=== PATIENT | female | born 1995 | race Caucasian/White ===

== ENCOUNTER 2017-04-10 10:59 | Emergency (ER) | payer BC ==
--- NOTE | 2017-04-10 11:27 | EDM.PDOCBH ---
ED HPI GENERAL MEDICAL PROBLEM - General Chief Complaint: Behavioral/Psych Stated Complaint: DEPRESSION Time Seen by Provider: 04/10/17 11:15 Source of Information: Reports: Patient History Limitations: Reports: No Limitations - History of Present Illness INITIAL COMMENTS - FREE TEXT/NARRATIVE: 22 yo female was sent from her clinic to the ER for suicidal ideation/ depression and auditory hallucinations. Has not done anything to harm herself to date. Has been having these thoughts for some time now. Here with her mother. Admits to attempting to drown herself in a sink once in the past. Is on no psych meds now. 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) - Related Data Allergies Allergy/AdvReac Type Severity Reaction Status Date / Time No Known Allergies Allergy Verified 04/10/17 11:32 Home Meds: Home Meds Montelukast [Singulair] 5 mg PO DAILY 06/01/16 [History] FLUoxetine [PROzac] 20 mg PO DAILY #30 cap 04/10/17 [Rx] Past Medical History - Past Surgical History HEENT Surgical History: Reports: Tonsillectomy Social & Family History - Family History Family Medical History: Noncontributory - Tobacco Use Smoking Status *Q: Never Smoker - Caffeine Use Caffeine Use: Reports: None - Recreational Drug Use Recreational Drug Use: No ED ROS GENERAL - Review of Systems Review Of Systems: See Below Constitutional: Reports: No Symptoms HEENT: Reports: No Symptoms Respiratory: Reports: No Symptoms Cardiovascular: Reports: No Symptoms Endocrine: Reports: No Symptoms GI/Abdominal: Reports: No Symptoms : Reports: No Symptoms Musculoskeletal: Reports: No Symptoms Skin: Reports: No Symptoms Neurological: Reports: No Symptoms Psychiatric: Reports: Depression, Hallucinations (auditory), Suicidal Ideation ED EXAM, BEHAVIORAL HEALTH - Physical Exam Exam: See Below Exam Limited By: No Limitations General Appearance: Alert, WD/WN, No Apparent Distress Eye Exam: Bilateral Eye: Normal Inspection, PERRL Ears: Normal External Exam, Normal Canal, Hearing Grossly Normal, Normal TMs Nose: Normal Inspection, Normal Mucosa, No Blood Throat/Mouth: Normal Inspection, Normal Lips, Normal Teeth, Normal Oropharynx, Normal Voice, No Airway Compromise Head: Atraumatic, Normocephalic Neck: Normal Inspection, Supple Respiratory/Chest: No Respiratory Distress, Lungs Clear, Normal Breath Sounds, No Accessory Muscle Use Cardiovascular: Normal Peripheral Pulses, Regular Rate, Rhythm, No Edema GI/Abdominal: Normal Bowel Sounds, Soft, Non-Tender Back Exam: Normal Inspection. No: CVA Tenderness (R), CVA Tenderness (L) Extremities: Normal Inspection, Normal Range of Motion, Non-Tender, No Pedal Edema Neurological: Alert, Normal Mood/Affect, CN II-XII Intact, Normal Cognition, No Motor/Sensory Deficits, Oriented x 3 Psychiatric: Alert, Normal Affect, Normal Cognition, Normal Mood, Oriented Skin Exam: Warm, Dry, Intact, Normal color, No rash COURSE, BEHAVIORAL HEALTH COMP - Course Vital Signs: Last Vital Signs Temp 36.2 C 04/10/17 10:59 Pulse 72 04/10/17 12:55 Resp 16 04/10/17 12:55 BP 129/85 04/10/17 12:55 Pulse Ox 100 04/10/17 12:55 Orders, Labs, Meds: Active Orders 24 hr Category Date Time Status CULTURE URINE [RM] Stat Lab 04/10/17 12:49 Ordered Laboratory Tests 04/10/17 04/10/17 04/10/17 Range/Units 11:25 11:25 11:25 WBC 8.3 (4.5-12.0) X10-3/uL RBC 4.54 (3.23-5.20) x10(6)uL Hgb 13.8 (11.5-15.5) g/dL Hct 40.6 (30.0-51.3) % MCV 89.4 (80-96) fL MCH 30.4 (27.7-33.6) pg MCHC 34.0 (32.2-35.4) g/dL RDW 12.4 (11.5-15.5) % Plt Count 343 (125-369) X10(3)uL Sodium 136 (135-145) mmol/L Potassium 3.3 L (3.5-5.3) mmol/L Chloride 101 (100-110) mmol/L Carbon Dioxide 25 (23-29) mmol/L BUN 9 (5-20) mg/dL Creatinine 0.7 (0.6-1.3) mg/dL Est Cr Clr Drug Dosing TNP Estimated GFR (MDRD) > 60 (>60) BUN/Creatinine Ratio 12.9 (9-20) Glucose 150 H (80-116) mg/dL Calcium 9.1 (8.6-10.2) mg/dL TSH, Ultra Sensitive 2.04 (0.4-5.5) nlU/mL Urine Color (YELLOW) Urine Appearance (CLEAR) Urine pH (5.0-6.5) Ur Specific [place] (1.010-1.025) Urine Protein (NEGATIVE) mg/dL Urine Glucose (UA) (NEGATIVE) mg/dL Urine Ketones (NEGATIVE) mg/dL Urine Occult Blood (NEGATIVE) Urine Nitrite (NEGATIVE) Urine Bilirubin (NEGATIVE) Urine Urobilinogen (NEGATIVE) mg/dL Ur Leukocyte Esterase (NEGATIVE) Urine RBC (0) Urine WBC (0) Urine Bacteria (NS) Urine HCG, Qual (NEGATIVE) Urine Opiates Screen (NEGATIVE) Ur Oxycodone Screen (NEGATIVE) Ur Propoxyphene Screen (NEGATIVE) Acetaminophen (10-30) ug/mL Ur Barbituates Screen (NEGATIVE) Ur Tricyclics Screen (NEGATIVE) Ur Phencyclidine Scrn (NEGATIVE) Ur Amphetamine Screen (NEGATIVE) Urine MDMA Screen (NEGATIVE) U Benzodiazepines Scrn (NEGATIVE) U Cocaine Metab Screen (NEGATIVE) U Marijuana (THC) Screen (NEGATIVE) Ethyl Alcohol (<0.01) % 04/10/17 04/10/17 04/10/17 Range/Units 11:25 11:25 12:33 WBC (4.5-12.0) X10-3/uL RBC (3.23-5.20) x10(6)uL Hgb (11.5-15.5) g/dL Hct (30.0-51.3) % MCV (80-96) fL MCH (27.7-33.6) pg MCHC (32.2-35.4) g/dL RDW (11.5-15.5) % Plt Count (125-369) X10(3)uL Sodium (135-145) mmol/L Potassium (3.5-5.3) mmol/L Chloride (100-110) mmol/L Carbon Dioxide (23-29) mmol/L BUN (5-20) mg/dL Creatinine (0.6-1.3) mg/dL Est Cr Clr Drug Dosing Estimated GFR (MDRD) (>60) BUN/Creatinine Ratio (9-20) Glucose (80-116) mg/dL Calcium (8.6-10.2) mg/dL TSH, Ultra Sensitive (0.4-5.5) nlU/mL Urine Color (YELLOW) Urine Appearance (CLEAR) Urine pH (5.0-6.5) Ur Specific [place] (1.010-1.025) Urine Protein (NEGATIVE) mg/dL Urine Glucose (UA) (NEGATIVE) mg/dL Urine Ketones (NEGATIVE) mg/dL Urine Occult Blood (NEGATIVE) Urine Nitrite (NEGATIVE) Urine Bilirubin (NEGATIVE) Urine Urobilinogen (NEGATIVE) mg/dL Ur Leukocyte Esterase (NEGATIVE) Urine RBC (0) Urine WBC (0) Urine Bacteria (NS) Urine HCG, Qual (NEGATIVE) Urine Opiates Screen Negative (NEGATIVE) Ur Oxycodone Screen Negative (NEGATIVE) Ur Propoxyphene Screen Negative (NEGATIVE) Acetaminophen < 10 L (10-30) ug/mL Ur Barbituates Screen Negative (NEGATIVE) Ur Tricyclics Screen Negative (NEGATIVE) Ur Phencyclidine Scrn Negative (NEGATIVE) Ur Amphetamine Screen Negative (NEGATIVE) Urine MDMA Screen Negative (NEGATIVE) U Benzodiazepines Scrn Negative (NEGATIVE) U Cocaine Metab Screen Negative (NEGATIVE) U Marijuana (THC) Screen Negative (NEGATIVE) Ethyl Alcohol < 0.01 (<0.01) % 04/10/17 04/10/17 Range/Units 12:33 12:33 WBC (4.5-12.0) X10-3/uL RBC (3.23-5.20) x10(6)uL Hgb (11.5-15.5) g/dL Hct (30.0-51.3) % MCV (80-96) fL MCH (27.7-33.6) pg MCHC (32.2-35.4) g/dL RDW (11.5-15.5) % Plt Count (125-369) X10(3)uL Sodium (135-145) mmol/L Potassium (3.5-5.3) mmol/L Chloride (100-110) mmol/L Carbon Dioxide (23-29) mmol/L BUN (5-20) mg/dL Creatinine (0.6-1.3) mg/dL Est Cr Clr Drug Dosing Estimated GFR (MDRD) (>60) BUN/Creatinine Ratio (9-20) Glucose (80-116) mg/dL Calcium (8.6-10.2) mg/dL TSH, Ultra Sensitive (0.4-5.5) nlU/mL Urine Color Gregory (YELLOW) Urine Appearance Cloudy (CLEAR) Urine pH 6.0 (5.0-6.5) Ur Specific [place] 1.020 (1.010-1.025) Urine Protein Negative (NEGATIVE) mg/dL Urine Glucose (UA) Normal (NEGATIVE) mg/dL Urine Ketones 15 H (NEGATIVE) mg/dL Urine Occult Blood Large H (NEGATIVE) Urine Nitrite Negative (NEGATIVE) Urine Bilirubin Small H (NEGATIVE) Urine Urobilinogen 1 H (NEGATIVE) mg/dL Ur Leukocyte Esterase Moderate H (NEGATIVE) Urine RBC 5-10 (0) Urine WBC 5-10 (0) Urine Bacteria Moderate H (NS) Urine HCG, Qual Negative (NEGATIVE) Urine Opiates Screen (NEGATIVE) Ur Oxycodone Screen (NEGATIVE) Ur Propoxyphene Screen (NEGATIVE) Acetaminophen (10-30) ug/mL Ur Barbituates Screen (NEGATIVE) Ur Tricyclics Screen (NEGATIVE) Ur Phencyclidine Scrn (NEGATIVE) Ur Amphetamine Screen (NEGATIVE) Urine MDMA Screen (NEGATIVE) U Benzodiazepines Scrn (NEGATIVE) U Cocaine Metab Screen (NEGATIVE) U Marijuana (THC) Screen (NEGATIVE) Ethyl Alcohol (<0.01) % Medications Discontinued Medications Generic Name Dose Route Start Last Admin Trade Name Irene PRN Reason Stop Dose Admin Potassium Chloride 20 meq 04/10/17 11:58 04/10/17 12:05 Klor-Con 10 PO 04/10/17 11:59 20 meq ONETIME ONE Administration Departure - Departure Time of Disposition: 14:15 Disposition: Home, Self-Care 01 Condition: Fair Clinical Impression: Depressive disorder, Suicidal ideation - Discharge Information Prescriptions: FLUoxetine [PROzac] 20 mg PO DAILY #30 cap Referrals: Gagan Live MD [Primary Care Provider] - Forms: ED Department Discharge - My Orders Last 24 Hours: My Active Orders 04/10/17 12:49 CULTURE URINE [RM] Stat - Assessment/Plan Last 24 Hours: My Active Orders 04/10/17 12:49 CULTURE URINE [RM] Stat
[2017-04-10] MEDS ORDERED: Potassium Chloride 10 MEQ Tab.ER PO ONE (11:58)
[2017-04-10 12:55] VITALS: BP 129/85
== END 2017-04-10 14:25 | disposition home or self-care (01) ==
LOC: FB.ED 10:59
DX: F32.9 Major depressive disorder, single episode, unspecified (principal); R45.851 Suicidal ideations; Z79.899 Other long term (current) drug therapy; Z98.890 Other specified postprocedural states
CPT/HCPCS: 36415; 80048; 80305; 81001; 81025; 84443; 85027; 87086; 99284; A9270; G0480

== ENCOUNTER 2018-02-18 01:06 | Emergency (ER) | payer SELFPAY ==
[2018-02-18] MEDS ORDERED: [UNRECOGNIZED DRUG - OTHER] PO STA (01:09)
[2018-02-18] MEDS ORDERED: ACTIVATED CHARCOAL PO STA (01:09)
[2018-02-18] MEDS ORDERED: Lactated Ringers 1,000 ML IV ONE (01:11)
--- NOTE | 2018-02-18 01:28 | EDM.PDOCBH ---
<Young Mao G - Last Filed: 02/18/18 05:25> ED HPI GENERAL MEDICAL PROBLEM - General Chief Complaint: Behavioral/Psych Stated Complaint: overdose of Prozac Time Seen by Provider: 02/18/18 01:17 Source of Information: Reports: Patient, EMS, Old Records History Limitations: Reports: No Limitations - History of Present Illness INITIAL COMMENTS - FREE TEXT/NARRATIVE: 23 yo female ingested 25 tabs of 20 mg Prozac about midnight tonight. Mother found out and called police. EMS transported with patient awake and vitally stable. Has a pHx of depression and suicidal ideations. No other ingestions reported. Patient says she did this impulsively. Mother says the daughter has never attempted suicide in the past. Daughter reported the ingestion to her mother shortly after she had done it. 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) - Related Data Allergies Allergy/AdvReac Type Severity Reaction Status Date / Time No Known Allergies Allergy Verified 02/18/18 01:39 Home Meds: Home Meds Montelukast [Singulair] 5 mg PO DAILY 06/01/16 [History] FLUoxetine [PROzac] 20 mg PO DAILY #30 cap 04/10/17 [Rx] Past Medical History - Past Surgical History HEENT Surgical History: Reports: Tonsillectomy Social & Family History - Family History Family Medical History: Noncontributory - Caffeine Use Caffeine Use: Reports: None ED ROS GENERAL - Review of Systems Review Of Systems: See Below Constitutional: Reports: No Symptoms, Weight Gain Respiratory: Reports: No Symptoms Cardiovascular: Reports: No Symptoms GI/Abdominal: Reports: No Symptoms : Reports: No Symptoms Musculoskeletal: Reports: No Symptoms Skin: Reports: No Symptoms Neurological: Reports: No Symptoms Psychiatric: Reports: Depression ED EXAM, BEHAVIORAL HEALTH - Physical Exam Exam: See Below Exam Limited By: No Limitations General Appearance: Alert, WD/WN, No Apparent Distress Eye Exam: Bilateral Eye: EOMI, PERRL Ears: Normal External Exam, Normal Canal, Hearing Grossly Normal, Normal TMs Nose: Normal Inspection, Normal Mucosa, No Blood Throat/Mouth: Normal Inspection, Normal Lips, Normal Oropharynx, Normal Voice, No Airway Compromise Head: Atraumatic, Normocephalic Neck: Normal Inspection, Supple, Non-Tender Respiratory/Chest: No Respiratory Distress, Lungs Clear, Normal Breath Sounds, No Accessory Muscle Use Cardiovascular: Regular Rate, Rhythm, No Edema GI/Abdominal: Normal Bowel Sounds, Soft, Non-Tender Extremities: Normal Inspection, Normal Range of Motion, Non-Tender, No Pedal Edema Neurological: Alert, Normal Mood/Affect, CN II-XII Intact, Normal Cognition, No Motor/Sensory Deficits, Oriented x 3 Psychiatric: Alert, Normal Affect, Normal Cognition, Normal Mood, Oriented Skin Exam: Warm, Dry, Intact, Normal color, No rash COURSE, BEHAVIORAL HEALTH COMP - Course Vital Signs: Last Vital Signs Temp 36.6 C 02/18/18 04:30 Pulse 80 02/18/18 07:00 Resp 15 02/18/18 07:00 BP 114/81 02/18/18 07:00 Pulse Ox 99 02/18/18 07:00 Orders, Labs, Meds: Active Orders 24 hr Category Date Time Status DRUG SCREEN, URINE ALERE [URCHEM] Stat Lab 02/18/18 01:35 Ordered HCG QUALITATIVE,URINE [URCHEM] Stat Lab 02/18/18 01:35 Ordered Laboratory Tests 02/18/18 02/18/18 02/18/18 Range/Units 01:25 01:25 01:35 Sodium 137 (135-145) mmol/L Potassium 3.7 (3.5-5.3) mmol/L Chloride 102 (100-110) mmol/L Carbon Dioxide 28 (21-32) mmol/L BUN 11 (7-18) mg/dL Creatinine 0.7 (0.55-1.02) mg/dL Est Cr Clr Drug Dosing TNP Estimated GFR (MDRD) > 60 (>60) BUN/Creatinine Ratio 15.7 (9-20) Glucose 105 (80-116) mg/dL Calcium 9.0 (8.6-10.2) mg/dL Total Bilirubin 0.3 (0.1-1.3) mg/dL AST 15 (5-25) IU/L ALT 23 (12-36) U/L Alkaline Phosphatase 109 (56-112) IU/L Total Protein 7.6 (6.0-8.0) g/dL Albumin 3.5 (3.5-5.2) g/dL Globulin 4.1 g/dL Albumin/Globulin Ratio 0.9 Urine HCG, Qual (NEGATIVE) Urine Opiates Screen Negative (NEGATIVE) Ur Oxycodone Screen Negative (NEGATIVE) Ur Propoxyphene Screen Negative (NEGATIVE) Acetaminophen < 2 L (10-30) ug/mL Ur Barbituates Screen Negative (NEGATIVE) Ur Tricyclics Screen Negative (NEGATIVE) Ur Phencyclidine Scrn Negative (NEGATIVE) Ur Amphetamine Screen Negative (NEGATIVE) Urine MDMA Screen Negative (NEGATIVE) U Benzodiazepines Scrn Negative (NEGATIVE) U Cocaine Metab Screen Negative (NEGATIVE) U Marijuana (THC) Screen Negative (NEGATIVE) Ethyl Alcohol < 0.03 (<0.03) % 02/18/18 Range/Units 01:35 Sodium (135-145) mmol/L Potassium (3.5-5.3) mmol/L Chloride (100-110) mmol/L Carbon Dioxide (21-32) mmol/L BUN (7-18) mg/dL Creatinine (0.55-1.02) mg/dL Est Cr Clr Drug Dosing Estimated GFR (MDRD) (>60) BUN/Creatinine Ratio (9-20) Glucose (80-116) mg/dL Calcium (8.6-10.2) mg/dL Total Bilirubin (0.1-1.3) mg/dL AST (5-25) IU/L ALT (12-36) U/L Alkaline Phosphatase (56-112) IU/L Total Protein (6.0-8.0) g/dL Albumin (3.5-5.2) g/dL Globulin g/dL Albumin/Globulin Ratio Urine HCG, Qual Negative (NEGATIVE) Urine Opiates Screen (NEGATIVE) Ur Oxycodone Screen (NEGATIVE) Ur Propoxyphene Screen (NEGATIVE) Acetaminophen (10-30) ug/mL Ur Barbituates Screen (NEGATIVE) Ur Tricyclics Screen (NEGATIVE) Ur Phencyclidine Scrn (NEGATIVE) Ur Amphetamine Screen (NEGATIVE) Urine MDMA Screen (NEGATIVE) U Benzodiazepines Scrn (NEGATIVE) U Cocaine Metab Screen (NEGATIVE) U Marijuana (THC) Screen (NEGATIVE) Ethyl Alcohol (<0.03) % Medications Discontinued Medications Generic Name Dose Route Start Last Admin Trade Name Freq PRN Reason Stop Dose Admin Charcoal 50 gm 02/18/18 01:09 02/18/18 02:10 Actidose-Aqua PO 02/18/18 01:10 Not Given NOW STA Charcoal Confirm 02/18/18 01:48 02/18/18 02:08 Actidose-Aqua Administered 02/18/18 01:49 50 gm Dose Administration 50 gm .ROUTE .STK-MED ONE Lactated Ringer's 1,000 mls @ 1,000 mls/hr 02/18/18 01:11 02/18/18 02:00 Ringers, Lactated IV 02/18/18 02:10 999 mls/hr BOLUS ONE Administration Lactated Ringer's 1,000 mls @ 150 mls/hr 02/18/18 01:45 02/18/18 03:00 Ringers, Lactated IV 150 mls/hr ASDIRECTED BISHNU Administration Departure - Departure Disposition: Home, Self-Care 01 Condition: Fair Clinical Impression: Depressive disorder Intentional overdose of selective serotonin reuptake inhibitor (SSRI) Qualifiers: Encounter type: initial encounter Qualified Code(s): T43.222A - Poisoning by selective serotonin reuptake inhibitors, intentional self-harm, initial encounter Depression (emotion) Qualifiers: Depression Type: other depression Qualified Code(s): F32.89 - Other specified depressive episodes - Discharge Information Instructions: Self-Destructive Behavior, Suicidal Feelings: How to Help Yourself, Drug Overdose Referrals: PCP,None [Primary Care Provider] - Forms: ED Department Discharge Additional Instructions: Please f/u as outpatient as recommended by the the consult. Please come back if your symptoms get worse acutely <Jack Rangel M - Last Filed: 02/18/18 13:14> COURSE, BEHAVIORAL HEALTH COMP - Course Vital Signs: Last Vital Signs Temp 36.6 C 02/18/18 04:30 Pulse 80 02/18/18 07:00 Resp 15 02/18/18 07:00 BP 114/81 02/18/18 07:00 Pulse Ox 99 02/18/18 07:00 Pt was signed out to me at 7 am due to shift changes, pending Psych consultation. Pt was found not to be suicidal and felt to be safe to go home with her mom and f/u as out patient. Departure - Departure Time of Disposition: 07:00 Condition: Fair - Discharge Information *PRESCRIPTION DRUG MONITORING PROGRAM REVIEWED*: No *COPY OF PRESCRIPTION DRUG MONITORING REPORT IN PATIENT SOCO: No
[2018-02-18] MEDS ORDERED: Lactated Ringers 1,000 ML IV SCH (01:45)
[2018-02-18] MEDS ORDERED: Activated Charcoal/Water Susp 50 GM/240 ML Tube ONE (01:48)
[2018-02-18 01:54] LABS: ACETAMINOPHEN < 2 ug/mL (10-30)
[2018-02-18 07:55] VITALS: BP 114/81
== END 2018-02-18 08:15 | disposition home or self-care (01) ==
LOC: FB.ED 01:06
DX: T43.222A Poisoning by selective serotonin reuptake inhibitors, intentional self-harm, initial encounter (principal); F32.89 Other specified depressive episodes
CPT/HCPCS: 36415; 80053; 80305; 81025; 96360; 96361; 99285; G0480; J7120

== ENCOUNTER 2019-04-23 22:44 | Emergency (ER) | payer SELFPAY ==
[2019-04-23 23:04] VITALS: BP 121/84; PULSE 96
--- NOTE | 2019-04-23 23:08 | EDM.PDOC ---
ED HPI GENERAL MEDICAL PROBLEM - General Chief Complaint: Respiratory Problem Stated Complaint: PELVIC PAIN; BLEEDING Time Seen by Provider: 04/23/19 23:05 Source of Information: Reports: Patient History Limitations: Reports: No Limitations - History of Present Illness INITIAL COMMENTS - FREE TEXT/NARRATIVE: Cough x 1 weeks. Productive ,paroxysmal. Associated with fever,runny nose,and facial pain. In addition,she has mid back pain,and an irregular period. - Related Data Allergies Allergy/AdvReac Type Severity Reaction Status Date / Time No Known Allergies Allergy Verified 04/23/19 22:58 Home Meds: Home Meds NK [No Known Home Meds] 04/23/19 [History] Past Medical History - Past Surgical History HEENT Surgical History: Reports: Tonsillectomy Social & Family History - Family History Family Medical History: Noncontributory - Caffeine Use Caffeine Use: Reports: None ED ROS GENERAL - Review of Systems Review Of Systems: ROS reveals no pertinent complaints other than HPI. ED EXAM, GENERAL - Physical Exam Exam: See Below Exam Limited By: No Limitations General Appearance: Alert Ears: Normal External Exam Nose: Normal Inspection Throat/Mouth: Normal Inspection Head: Atraumatic, Sinus Tenderness Neck: Normal Inspection Respiratory/Chest: No Respiratory Distress, Lungs Clear Cardiovascular: Normal Peripheral Pulses, Regular Rate, Rhythm Course - Vital Signs Last Recorded V/S: Last Vital Signs Temp 98.0 F 04/23/19 22:44 Pulse 96 04/23/19 22:44 Resp 18 04/23/19 22:44 BP 121/84 04/23/19 22:44 Pulse Ox 100 04/23/19 22:44 Departure - Departure Time of Disposition: 23:07 Disposition: Home, Self-Care 01 Condition: Good Clinical Impression: Sinusitis - Discharge Information - Problem List & Annotations (1) Bronchitis SNOMED Code(s): 13177581 Code(s): J40 - BRONCHITIS, NOT SPECIFIED ACUTE OR CHRONIC Status: Acute (2) Sinusitis SNOMED Code(s): 03308932 Code(s): J32.9 - CHRONIC SINUSITIS, UNSPECIFIED Status: Acute Qualifiers: Sinusitis location: frontal - Problem List Review Problem List Initiated/Reviewed/Updated: Yes - Assessment/Plan Plan: Zpak. Rodrick ORTEGA Follow up with PCP next week.
== END 2019-04-23 23:15 | disposition home or self-care (01) ==
LOC: FB.ED 22:44
DX: J32.9 Chronic sinusitis, unspecified (principal)
CPT/HCPCS: 99282

== ENCOUNTER 2019-08-09 00:39 | Emergency (ER) | payer SELFPAY ==
[2019-08-09] MEDS ORDERED: Cyclobenzaprine 10 MG Tab PO ONE (00:40)
[2019-08-09] MEDS ORDERED: Naproxen 250 MG Tab PO ONE (00:40)
[2019-08-09] MEDS ORDERED: Ondansetron 4 MG/2 ML SDV IM ONE (00:45)
[2019-08-09] MEDS ORDERED: Ketorolac 60 MG/2 ML SDV IM ONE (00:45)
--- NOTE | 2019-08-09 00:49 | EDM.PDOC ---
ED HPI GENERAL MEDICAL PROBLEM - General Stated Complaint: BACK PAIN; VOMITING; CHILLS Time Seen by Provider: 08/09/19 00:47 Source of Information: Reports: Patient - History of Present Illness INITIAL COMMENTS - FREE TEXT/NARRATIVE: Back pain x 2 days. Right lower back. Moderate,non radiating. Has not tried anything for it. Also endorses vomiting,but denies fever,or urinary symptoms.She does complain of chills of sudden onset. Lower back Pain Score (Numeric/FACES): 10 - Related Data Allergies Allergy/AdvReac Type Severity Reaction Status Date / Time No Known Allergies Allergy Verified 04/23/19 22:58 Home Meds: Home Meds NK [No Known Home Meds] 04/23/19 [History] Past Medical History Respiratory History: Reports: Asthma - Past Surgical History HEENT Surgical History: Reports: Tonsillectomy Social & Family History - Family History Family Medical History: Noncontributory - Caffeine Use Caffeine Use: Reports: None ED ROS GENERAL - Review of Systems Review Of Systems: Comprehensive ROS is negative, except as noted in HPI. ED EXAM,LOWER BACK PAIN/INJURY - Physical Exam Exam: See Below Exam Limited By: No Limitations General Appearance: Alert, WD/WN, Anxious Respiratory/Chest: No Respiratory Distress, Lungs Clear Cardiovascular: Normal Peripheral Pulses GI/Abdominal: Normal Bowel Sounds Back Exam: Normal Inspection, Paraspinal Tenderness Neurological: Alert Psychiatric: Depressed Mood, Tearful Course - Vital Signs Last Recorded V/S: Last Vital Signs Temp 100.1 F 08/09/19 02:26 Pulse 122 H 08/09/19 02:26 Resp 20 08/09/19 02:26 BP 113/66 08/09/19 02:26 Pulse Ox 100 08/09/19 02:26 - Orders/Labs/Meds Labs: Laboratory Tests 08/09/19 Range/Units 01:10 Urine Color Yellow (YELLOW) Urine Appearance Slightly cloudy (CLEAR) Urine pH 7.0 H (5.0-6.5) Ur Specific [place] 1.015 (1.010-1.025) Urine Protein Negative (NEGATIVE) mg/dL Urine Glucose (UA) Normal (NORMAL) mg/dL Urine Ketones Negative (NEGATIVE) mg/dL Urine Occult Blood Negative (NEGATIVE) Urine Nitrite Negative (NEGATIVE) Urine Bilirubin Negative (NEGATIVE) Urine Urobilinogen Normal (NEGATIVE) mg/dL Ur Leukocyte Esterase Negative (NEGATIVE) Urine RBC 0-5 (0-5) Urine WBC 0-5 (0-5) Ur Squamous Epith Cells Few H (NS,R,O) Urine Bacteria Few H (NS) Meds: Medications Discontinued Medications Generic Name Dose Route Start Last Admin Trade Name Irene PRN Reason Stop Dose Admin Acetaminophen 1,000 mg 08/09/19 01:46 08/09/19 01:56 Tylenol Extra Strength PO 08/09/19 01:47 1,000 mg ONETIME ONE Administration Ketorolac Tromethamine 60 mg 08/09/19 00:45 08/09/19 01:04 Toradol IM 08/09/19 00:46 60 mg ONETIME ONE Administration Ondansetron HCl 4 mg 08/09/19 00:45 08/09/19 01:05 Zofran IM 08/09/19 00:46 4 mg ONETIME ONE Administration Departure - Departure Time of Disposition: 00:49 Disposition: Home, Self-Care 01 Condition: Good Clinical Impression: Back pain - Discharge Information Instructions: Cyclobenzaprine tablets, Ketorolac injection, Ondansetron injection, Acute Back Pain, Adult, Naproxen and naproxen sodium oral immediate- release tablets, Fever, Adult, [id number] Referrals: PCP,None [Primary Care Provider] - Forms: ED Department Discharge Additional Instructions: Activity as tolerated. Increase fluids while running fever. Tylenol as needed for fever. Naproxen 250mg 1 tablet twice a day as needed for back pain. Flexeril (Cyclobenzaprine) 10mg 1 tablet twice a day as needed for back spasms. Follow up with regular MD at clinic as needed or if not improving. Sepsis Event Note - Focused Exam Vital Signs: Vital Signs Temp Pulse Resp BP Pulse Ox 08/09/19 02:26 100.1 F 122 H 20 113/66 100 08/09/19 00:57 102.5 F H 130 H 20 125/70 100 Date Exam was Performed: 08/09/19 Time Exam was Performed: 07:22 - Problem List & Annotations (1) Back pain SNOMED Code(s): 018474965 Code(s): M54.9 - DORSALGIA, UNSPECIFIED Status: Acute Qualifiers: Back pain location: thoracic back pain (2) Acute febrile illness SNOMED Code(s): 887265675 Code(s): R50.9 - FEVER, UNSPECIFIED Status: Acute - Problem List Review Problem List Initiated/Reviewed/Updated: Yes - Assessment/Plan Plan: UA and FLU were negative. I gave her todarol and Zofran. My suspicion is Influenza,even though the tests were negative. I discharged her on Flexeril and Motrin. Follow up with PCP next week.
[2019-08-09] MEDS ORDERED: Acetaminophen 500 MG Tab PO ONE (01:46)
[2019-08-09 02:27] VITALS: PULSE 122
[2019-08-09 03:45] VITALS: BP 113/66
== END 2019-08-09 02:37 | disposition home or self-care (01) ==
LOC: FB.ED 00:39
DX: M54.5 Low back pain (principal); J45.909 Unspecified asthma, uncomplicated
CPT/HCPCS: 81001; 87804; 96372; 99284; A9270; J1885; J2405

== ENCOUNTER 2024-11-05 00:49 | Emergency (ER) | payer SELFPAY ==
[2024-11-05] MEDS ORDERED: Prochlorperazine 10 MG in Sodium Chloride 0.9% 50 ML IV ONE (01:09)
[2024-11-05] MEDS: Sodium Chloride 0.9% 1,000 ML IV ONE (01:20)
[2024-11-05] MEDS: Ketorolac 30 MG/ML SDV IVPUSH ONE (01:20)
[2024-11-05] MEDS: Prochlorperazine 10 MG/2 ML SDV IVPUSH ONE (01:21)
[2024-11-05 01:34] LABS: BLOOD UREA NITROGEN,BUN 6 mg/dL (7-18); BUN/CREATININE RATIO 7.5 (9-20); CALCIUM 8.9 mg/dL (8.6-10.2); CARBON DIOXIDE,CO2 27 mmol/L (21-32); CHLORIDE,CL 103 mmol/L (100-110); CREATININE 0.8 mg/dL (0.55-1.02); EST CRCL DRUG DOSING (CG) 91.21 mL/min; ESTIMATED GFR 104 mL/min (>60); GLUCOSE RANDOM 101 mg/dL (80-116); POTASSIUM,K 3.3 mmol/L (3.5-5.3); SODIUM,NA 140 mmol/L (135-145)
[2024-11-05] MEDS: SUMAtriptan 6 MG/0.5 ML SDV SUBCUT ONE (01:42)
[2024-11-05] MEDS: Potassium Chloride 20 MEQ Tab.ER PO ONE (02:05)
[2024-11-05 02:17] VITALS: BP 115/78; PULSE 72
== END 2024-11-05 02:16 | disposition home or self-care (01) ==
LOC: FB.ED 00:49
DX: E87.6 Hypokalemia (principal); J45.909 Unspecified asthma, uncomplicated
CPT/HCPCS: 36415; 80048; 96361; 96372; 96374; 96375; 99284; A9270; J0780; J1885; J3030; J7030

== ENCOUNTER 2025-05-26 19:26 | Emergency (ER) | payer SELFPAY ==
[2025-05-26 19:39] VITALS: BP 110/84; PULSE 72
[2025-05-26] MEDS ORDERED: Sodium Chloride 0.9% 10 ML Syringe FLUSH PRN (19:41)
[2025-05-26 19:59] LABS: BASOPHILS ABSOLUTE AUTO 0.0 x10-3/uL (0.0-0.1); BASOPHILS PERCENT AUTO 0.7 % (0.2-1.5); EOSINOPHILS ABSOLUTE AUTO 0.3 x10-3/uL (0.0-0.8); EOSINOPHILS PERCENT AUTO 4.2 % (0.6-8.1); LYMPHOCYTES ABSOLUTE AUTO 1.6 x10-3/uL (1.0-4.4); LYMPHOCYTES PERCENT AUTO 25.4 % (18.4-52.1); MEAN PLATELET VOLUME 7.8 fL (7.1-12.4); MONOCYTES ABSOLUTE AUTO 0.4 x10-3/uL (0.3-1.0); MONOCYTES PERCENT AUTO 7.0 % (4.4-15.7); NEUTROPHILS ABSOLUTE AUTO 3.9 x10-3/uL (1.5-6.3); NEUTROPHILS PERCENT AUTO 62.7 % (30.8-76.2); PLATELET COUNT,PLT 326 x10(3)uL (151-488); RED BLOOD CELL COUNT 4.21 x10(6)uL (3.60-5.20); RED CELL DISTRIBUTION WIDTH 12.9 % (12.3-16.5); WHITE BLOOD CELL COUNT,WBC 6.2 x10-3/uL (3.0-10.3)
[2025-05-26 20:03] LABS: BLOOD UREA NITROGEN,BUN 8 mg/dL (7-18); CARBON DIOXIDE,CO2 30 mmol/L (21-32); CHLORIDE,CL 106 mmol/L (100-110); CREATININE 0.7 mg/dL (0.55-1.02); ESTIMATED GFR 121 mL/min (>60); GLUCOSE RANDOM 91 mg/dL (80-116); POTASSIUM,K 4.2 mmol/L (3.5-5.3); SODIUM,NA 141 mmol/L (135-145)
[2025-05-26 20:09] LABS: A/G RATIO 1.0; ALANINE AMINOTRANSFERASE,ALT 13 U/L (12-36); ASPARTATE AMNIOTRANSFERASE,AST 14 IU/L (5-25); BILIRUBIN TOTAL 0.4 mg/dL (0.1-1.3); PROTEIN TOTAL,TP 7.1 g/dL (6.0-8.0)
[2025-05-26 21:05] LABS: GLUCOSE,URINE NORMAL (NORMAL); OCCULT BLOOD,URINE NEGATIVE (NEGATIVE)
[2025-05-26 21:10] LABS: APPEARANCE,URINE CLEAR (CLEAR)
[2025-05-26 21:11] LABS: SQUAMOUS EPITHELIAL CELLS,UR FEW (NS,R,O)
== END 2025-05-26 23:20 | disposition home or self-care (01) ==
LOC: FB.ED 19:26
DX: R11.2 Nausea with vomiting, unspecified (principal); R55 Syncope and collapse; E86.0 Dehydration; N39.0 Urinary tract infection, site not specified; R31.9 Hematuria, unspecified; J45.909 Unspecified asthma, uncomplicated; F17.290 Nicotine dependence, other tobacco product, uncomplicated; Z79.899 Other long term (current) drug therapy
CPT/HCPCS: 36415; 80053; 81001; 81025; 83735; 85025; 86140; 87086; 93005; 96360; 99284-25; J7030